=== PATIENT | female | born 1965 | race Caucasian/White ===

== ENCOUNTER 2021-03-08 20:33 | Emergency (ER) | payer BC ==
[~2021-03-08] VITALS: Ht 165.1 cm; Wt 71.6 kg
--- NOTE | 2021-03-08 20:42 | NUR ---
DIRECTOR OF STRATEGIC INITIATIVES: WOUND DRESSING APPLIED IN TRIAGE.
[2021-03-08] MEDS ORDERED: DIPH,PERTUSS(ACELL),TET VAC/PF 0.5 ML IM-VACC ONE ×2 (21:00→21:24)
[2021-03-08] MEDS ORDERED: LIDOCAINE-MPF 1%, 5ML INFIL ONE (21:00)
--- NOTE | 2021-03-08 21:06 | NUR ---
EVENT SET UP SPECIALIST: PT WALKED BACK FROM LOBBY TO ROOM AT THIS TIME. STEADY UPON AMBULATION. NO ACUTE DISTRESS NOTED AT THIS TIME.
[2021-03-08] MEDS ORDERED: LIDOCAINE-MPF 1%, 5ML ONE (21:24)
--- NOTE | 2021-03-08 21:45 | NUR ---
ERP AT BEDSIDE FOR JIMBO ON LAC.
[2021-03-08] MEDS ORDERED: ACETAMINOPHEN 500 MG TABLET ONE (21:49)
[2021-03-08 21:50] VITALS: BP 111/74
[2021-03-08] MEDS ORDERED: BACITRACIN ZINC OINT 500U/GM, 0.9 GM ONE (21:51)
== END 2021-03-08 22:26 | disposition home or self-care (01) ==
LOC: ED 22:22
DX: S01.01XA Laceration without foreign body of scalp, initial encounter (principal); S09.90XA Unspecified injury of head, initial encounter; F10.220 Alcohol dependence with intoxication, uncomplicated; I10 Essential (primary) hypertension; M54.2 Cervicalgia; Z88.5 Allergy status to narcotic agent; Y04.8XXA Assault by other bodily force, initial encounter; Y93.89 Activity, other specified; Y92.89 Other specified places as the place of occurrence of the external cause; Y99.8 Other external cause status
CPT/HCPCS: 70450; 72125; 99285

== ENCOUNTER 2021-03-17 16:36 | Emergency (ER) | payer BC ==
[~2021-03-17] VITALS: Ht 165.1 cm; Wt 71.0 kg
[2021-03-17 16:47] VITALS: BP 190/100
== END 2021-03-17 16:57 | disposition home or self-care (01) ==
LOC: ED 16:37
DX: S01.01XD Laceration without foreign body of scalp, subsequent encounter (principal); X58.XXXD Exposure to other specified factors, subsequent encounter
CPT/HCPCS: 99281